=== PATIENT | female | born 1960 | race Two or more races ===

== ENCOUNTER 2019-08-06 12:58 | Emergency (ER) | payer OTHER ==
[2019-08-06] MEDS ORDERED: ASPIRIN 325 MG TABLET PO ONE (13:09)
[2019-08-06] MEDS ORDERED: ONDANSETRON 4 MG/2 ML VIAL IVPUSH ONE (13:26)
[2019-08-06] MEDS ORDERED: SODIUM CHLORIDE 0.9% 500 ML INFUS.BAG IV ONE (13:26)
--- NOTE | 2019-08-06 13:36 | PDOC ---
History of Present Illness <Destiny Diane - Last Filed: 08/06/19 15:06> - General History Source: Patient, Family () Exam Limitations: Language Barrier (creole) - History of Present Illness Initial Comments: 08/06/19 13:30 Shagufta Foreman is a 59yF w PMHx HTN presenting with headache. 1030a at [facility], sudden onset midline frontal headache radiating back to neck, R ear deafness, midsternal chest pain, SOB. Went home, vomited, 1 episode of diarrhea, measured high BP, went to hospital. Denies fever, change of vision, cough, AB pain, urinary changes. Did not take baby aspirin today <Edy Beckman - Last Filed: 08/06/19 15:31> - General Chief Complaint: Chest Pain Stated Complaint: CHEST PAIN/SWEATS Time Seen by Provider: 08/06/19 13:25 Past History <Destiny Diane - Last Filed: 08/06/19 15:06> - Past Medical History COPD: No HTN: Yes - Immunization History Immunization Up to Date: Yes (unknown) - Suicide/Smoking/Psychosocial Hx Smoking Status: No Smoking History: Never smoked Have you smoked in the past 12 months: No Number of Cigarettes Smoked Daily: 0 Information on smoking cessation initiated: No Hx Alcohol Use: No Drug/Substance Use Hx: No Substance Use Type: None <Edy Beckman - Last Filed: 08/06/19 15:31> - Past Medical History Allergies/Adverse Reactions: Allergies Allergy/AdvReac Type Severity Reaction Status Date / Time No Known Allergies Allergy Verified 08/06/19 13:18 Home Medications: Ambulatory Orders Amlodipine Besylate [Norvasc -] 5 mg PO DAILY #30 tablet 01/06/18 Aspirin [ASA -] 81 mg PO DAILY #30 tab.chew 01/06/18 Review of Systems - Review of Systems Constitutional: No: Chills, Fever HEENTM: No: Eye Pain, Recent change in vision, Nose Pain, Throat Pain, Mouth Pain Respiratory: Yes: Shortness of Breath. No: Cough Cardiac (ROS): Yes: Chest Pain. No: Edema, Palpitations, Syncope ABD/GI: Yes: Diarrhea, Nausea, Vomiting. No: Abdominal Distended, Constipated : No: Burning, Dysuria, Discharge, Flank Pain, Hematuria, Incontinence Musculoskeletal: No: Back Pain, Joint Pain, Muscle Pain, Muscle Weakness Integumentary: No: Bruising, Flushing, Lesions Neurological: Yes: Headache. No: Numbness, Seizure, Tingling, Tremors Psychiatric: No: Anxiety, Depression, Stressors Endocrine: No: Excessive Sweating, Flushing, Intolerance to Cold, Intolerance to Heat Hematologic/Lymphatic: No: Anemia, Blood Clots, Easy Bleeding <Edy Beckman - Last Filed: 08/06/19 15:31> *Physical Exam - Vital Signs Last Vital Signs Temp Pulse Resp BP Pulse Ox 98.0 F 85 16 154/95 100 08/06/19 13:00 08/06/19 13:00 08/06/19 13:00 08/06/19 13:00 08/06/19 13:00 <Destiny Diane - Last Filed: 08/06/19 15:06> - Vital Signs Last Vital Signs Temp Pulse Resp BP Pulse Ox 98.0 F 85 16 154/95 100 08/06/19 13:00 08/06/19 13:00 08/06/19 13:00 08/06/19 13:00 08/06/19 13:00 - Physical Exam General Appearance: Yes: Nourished, Appropriately Dressed, Moderate Distress HEENT: positive: EOMI, LAM, Normal Voice, Hearing Grossly Normal. negative: Scleral Icterus (R), Scleral Icterus (L), Nasal Congestion, Rhinorrhea Neck: positive: Supple. negative: Tender, Rigid Respiratory/Chest: positive: Lungs Clear, Normal Breath Sounds. negative: Chest Tender, Respiratory Distress, Crackles, Rales, Rhonchi, Stridor, Wheezing Cardiovascular: positive: Regular Rhythm, Regular Rate, S1, S2. negative: Edema , Murmur Gastrointestinal/Abdominal: positive: Normal Bowel Sounds, Flat, Soft. negative : Tender, Organomegaly Musculoskeletal: positive: Normal Inspection. negative: CVA Tenderness Extremity: positive: Normal Capillary Refill Integumentary: positive: Normal Color Neurologic: positive: [employer] II-XII NML intact, Fully Oriented, Alert, Normal Response, Motor Strength 5/5, Responsive. negative: Facial Droop, Numbness, Sensory Deficit, Confused, Disoriented <Edy Beckman - Last Filed: 08/06/19 15:31> ED Treatment Course - LABORATORY CBC & Chemistry Diagram: 08/06/19 13:45 08/06/19 13:45 - ADDITIONAL ORDERS Additional order review: Laboratory Results 08/06/19 08/06/19 08/06/19 14:15 13:45 13:45 PT with INR 12.20 INR 1.03 Sodium 141 Potassium 3.8 Chloride 106 Carbon Dioxide 29 Anion Gap 6 L BUN 13.7 Creatinine 0.8 Est GFR (CKD-EPI)AfAm 94.85 Est GFR (CKD-EPI)NonAf 81.84 Random Glucose 121 H Calcium 9.3 Total Bilirubin 0.6 AST 18 ALT 26 Alkaline Phosphatase 84 Creatine Kinase Creatine Kinase Index CK-MB (CK-2) Troponin I Total Protein 7.7 Albumin 4.0 Urine Color Yellow Urine Appearance Cloudy Urine pH 8.5 H D Ur Specific [place] 1.011 Urine Protein Negative Urine Glucose (UA) Negative Urine Ketones Negative Urine Blood Negative Urine Nitrite Negative Urine Bilirubin Negative Urine Urobilinogen 0.2 Ur Leukocyte Esterase Negative 08/06/19 13:45 PT with INR INR Sodium Potassium Chloride Carbon Dioxide Anion Gap BUN Creatinine Est GFR (CKD-EPI)AfAm Est GFR (CKD-EPI)NonAf Random Glucose Calcium Total Bilirubin AST ALT Alkaline Phosphatase Creatine Kinase 616 H Creatine Kinase Index 0.3 CK-MB (CK-2) 1.9 Troponin I < 0.02 Total Protein Albumin Urine Color Urine Appearance Urine pH Ur Specific [place] Urine Protein Urine Glucose (UA) Urine Ketones Urine Blood Urine Nitrite Urine Bilirubin Urine Urobilinogen Ur Leukocyte Esterase 08/06/19 13:45 RBC 4.69 MCV 88.0 MCHC 31.7 L RDW 13.7 MPV 10.7 Neutrophils % 66.6 D Lymphocytes % 27.4 D Monocytes % 5.0 Eosinophils % 0.7 Basophils % 0.3 - RADIOLOGY Radiology Studies Ordered: Category Date Time Status CXRPORT [CHEST X-RAY PORTABLE*] [RAD] Stat Radiology 08/06/19 13:08 Ordered - Medications Given in the ED: ED Medications Discontinued Medications Generic Name Dose Route Start Last Admin Trade Name Freq PRN Reason Stop Dose Admin Acetaminophen 1,000 mg 08/06/19 14:09 08/06/19 14:20 Ofirmev Injection - IVPB 08/06/19 14:10 1,000 mg ONCE ONE Administration Aspirin 325 mg 08/06/19 13:09 08/06/19 14:20 Asa - PO 08/06/19 13:10 Not Given ONCE ONE Metoclopramide HCl 10 mg 08/06/19 14:09 08/06/19 14:20 Reglan Injection - IVPB 08/06/19 14:10 10 mg ONCE ONE Administration Ondansetron HCl 4 mg 08/06/19 13:26 08/06/19 13:45 Zofran Injection IVPUSH 08/06/19 13:27 4 mg NOW ONE Administration Sodium Chloride 1,000 ml 08/06/19 13:26 08/06/19 13:45 Normal Saline - IV 08/06/19 13:27 1,000 ml ONCE ONE Administration <Destiny Diane - Last Filed: 08/06/19 15:06> - LABORATORY CBC & Chemistry Diagram: 08/06/19 13:45 08/06/19 13:45 <Edy Beckman - Last Filed: 08/06/19 15:31> Medical Decision Making - Medical Decision Making 08/06/19 13:33 616 CK CBC CMP coags UA normal, trop neg EKG NSR, no ST changes. head CT shows minimal blood along posterior margin of medulla oblongata concerning for subarachinoid hemorrhage, no intraparenchymal hemorrhage 1L NS tylenol reglan for headache Shagufta Foreman is a 59yF w PMHx HTN presenting with headache. CT shows minimal blood along posterior margin of medulla oblongata concerning for subarachinoid hemorrhage, no intraparenchymal hemorrhage. Presenting BP 154/95. ACS ruled out w NSR EKG and neg trop. Not on anticoagulation, did not take baby aspirin today. Given 1L NS tylenol reglan for headache [facility]. Talked to Dr Rachel parekh told to start cardene drip for goal SBP < 140. Accepting Dr Nguyen <Edy Beckman - Last Filed: 08/06/19 15:31> *DC/Admit/Observation/Transfer <Destiny Diane - Last Filed: 08/06/19 15:06> <Edy Beckman - Last Filed: 08/06/19 15:31> Diagnosis at time of Disposition: Subarachnoid hemorrhage - Discharge Dispostion Disposition: TRANSFER ACUTE CARE/OTHER HOSP - Referrals Referrals: Darion Reynolds MD [Primary Care Provider] -
[2019-08-06] MEDS ORDERED: ONDANSETRON 4 MG/2 ML VIAL ONE (13:40)
[2019-08-06 13:44] VITALS: TEMP 98; BMI 35.5
[2019-08-06 13:58] LABS: BASO % 0.3 % (0-2.0); EOS % 0.7 % (0-4.5); HEMATOCRIT 41.2 % (32.4-45.2); HEMOGLOBIN 13.1 GM/dL (10.7-15.3); LYMPH % 27.4 % (8-40); MCH 27.9 pg (25.7-33.7); MCHC 31.7 g/dl (32.0-36.0); MEAN PLT VOLUME 10.7 fl (7.5-11.1); NEUT % 66.6 % (42.8-82.8); PLATELET COUNT 255 K/MM3 (134-434); RBC 4.69 M/mm3 (3.60-5.2); RDW 13.7 % (11.6-15.6); WHITE BLOOD COUNT 9.7 K/mm3 (4.0-10.0)
[2019-08-06 14:06] LABS: INR 1.03 (0.83-1.09); PROTHROMBIN TIME (PATIENT) 12.2 SEC (9.7-13.0)
[2019-08-06] MEDS ORDERED: ACETAMINOPHEN 1000 MG/100 ML VIAL (NON FORMULARY) IVPB ONE (14:09)
[2019-08-06] MEDS ORDERED: METOCLOPRAMIDE HCL INJECTION 10 MG/2 ML VIAL IVPB ONE (14:09)
[2019-08-06] MEDS ORDERED: METOCLOPRAMIDE HCL INJECTION 10 MG/2 ML VIAL ONE (14:10)
[2019-08-06] MEDS ORDERED: ACETAMINOPHEN INJECTION 100 ML IVPB ONE (14:10)
[2019-08-06 14:23] LABS: PH,URINE 8.5 (5.0-8.0); URINE APPEARANCE CLOUDY; URINE BILIRUBIN NEGATIVE (NEGATIVE); URINE COLOR YELLOW; URINE GLUCOSE (UA) NEGATIVE (NEGATIVE); URINE KETONE NEGATIVE (NEGATIVE); URINE LEUK ESTERASE NEGATIVE (NEGATIVE); URINE NITRITE NEGATIVE (NEGATIVE); URINE PROTEIN NEGATIVE (NEGATIVE); URINE UROBILINOGEN 0.2 mg/dL (0.2-1.0)
[2019-08-06 14:24] LABS: BILIRUBIN,TOTAL 0.6 mg/dL (0.2-1); BLOOD UREA NITROGEN 13.7 mg/dL (7-18); CALCIUM 9.3 mg/dL (8.5-10.1); CREATININE 0.8 mg/dL (0.55-1.3); POTASSIUM 3.8 mmol/L (3.5-5.1); TOT PROT 7.7 g/dl (6.4-8.2)
--- NOTE | 2019-08-06 15:10 | PDOC ---
Attending Attestation - Resident Resident Name: Edy Beckman - ED Attending Attestation I have performed the following: I have examined & evaluated the patient, The case was reviewed & discussed with the resident, I agree w/resident's findings & plan, Exceptions are as noted - HPI HPI: 08/06/19 15:07 59 yo F with h/o htn here from [facility] c/o sudden onset headache. pt describes headache posterior head, behind her ear. felt like she couldn't hear out of her ear. came on all of sudden. denies weakness or changes to vision or speech. did feel lightheaded and nauseas. no vomiting. no mod factors. did also have feeling of chest pain, or feeling like she was hungry in left substernal area. epigastric area. no sob. - Physicial Exam PE: 08/06/19 15:09 awake alert lungs clear bilat heart rrr nomrg abd soft nt nd ext wwp. nuero 55 all four ext. CN ii - XiI intact. visual thurman intact. oriented x 3. 5/5 strength all four ext. - Medical Decision Making 08/06/19 15:11 59 yo F with h/o htn here with c/o sudden onset headache, hearing changes, and lightheaded, nasuea and associated chest pain. normal nuerological exam. differential sah, angina, acs. plan cxr ct head labs ekg . asa held pending ct r/o SAH. ct head evaluated concerns for SAH posteriorly. [facility]. awaiting call back. d/w rafat, accepted transfer to [facility]. accepted by dr calzada started on cardene drip. pt baby aspirin daily, did not take today. Heart Score/ECG Review #1 General ECG Interpretation: Sinus Rhythm, Normal Rate (84), Normal Intervals, No acute ischemic changes Compared to previous ECG there are: Other (TWI III only) NIH Stroke Scale - Initial Evaluation Level of consciousness: Alert Ask patient the month and their age: Answers both correctly Ask patient to open & close eyes; make fist and let go: Obeys both correctly Best gaze (horizontal eye movement): Normal Visual field testing: No visual field loss Facial paresis (Show teeth/raise eyebrows/close eyes tight): Normal symmetrical movement Motor Function: Left Arm: Normal Motor Function: Right Arm: Normal (extends arm 90 (or 45) degrees for 10 seconds without drift Motor Function: Left Leg: Normal (extends leg 30 degrees for 5 seconds without drift) Motor Function: Right Leg: Normal (extends leg 30 degrees for 5 seconds without drift) Limb Ataxia: No ataxia Sensory(Use pinprick test arms,legs,trunk,face/side to side): Normal Best language (Describe picture, name items, read sentences): No Aphasia Dysarthria (read several words): Normal articulation Extinction and Inattention: No abnormality - Total Score NIH Stroke Scale Score: 0
[2019-08-06] MEDS ORDERED: NICARDIPINE 25 MG in DEXTROSE 5%-WATER - 240 ML IVPB SCH (15:15)
[2019-08-06 15:42] VITALS: BP 136/95; PULSE 100
--- NOTE | 2019-08-08 07:14 | EKG ---
Test Reason : Blood Pressure : / mmHG Vent. Rate : 084 BPM Atrial Rate : 084 BPM P-R Int : 168 ms QRS Dur : 086 ms QT Int : 322 ms P-R-T Axes : 057 052 015 degrees QTc Int : 380 ms NORMAL SINUS RHYTHM POSSIBLE LEFT ATRIAL ENLARGEMENT NONSPECIFIC ST AND T WAVE ABNORMALITY ABNORMAL ECG WHEN COMPARED WITH ECG OF 05-JAN-2018 06:06, NO SIGNIFICANT CHANGE WAS FOUND Confirmed by ANGELINA OCONNOR, KATTY ([id number]) on 08/08/2019 7:14:15 AM Referred By: Confirmed By:KATTY ALFARO MD
== END 2019-08-06 16:03 | disposition short-term general hospital (02) ==
LOC: JER 12:58
PROC: 3E033GC Introduction of Other Therapeutic Substance into Peripheral Vein, Percutaneous Approach (ICD-10-PCS; principal; 2019-08-06)
PROC: 3E033GC Introduction of Other Therapeutic Substance into Peripheral Vein, Percutaneous Approach (ICD-10-PCS; 2019-08-06)
PROC: 3E033GC Introduction of Other Therapeutic Substance into Peripheral Vein, Percutaneous Approach (ICD-10-PCS; 2019-08-06)
PROC: 3E033NZ Introduction of Analgesics, Hypnotics, Sedatives into Peripheral Vein, Percutaneous Approach (ICD-10-PCS; 2019-08-06)
DX: I60.9 Nontraumatic subarachnoid hemorrhage, unspecified (principal); I60.8 Other nontraumatic subarachnoid hemorrhage; I10 Essential (primary) hypertension
CPT/HCPCS: 36415; 70450-TC; 71045-TC-FY; 80053; 81003; 82550; 82553; 84484; 85025; 85610; 93005; 93010; 99285-25; J0131

== ENCOUNTER 2019-09-17 16:10 | Emergency (ER) | payer OTHER ==
[2019-09-17 16:23] VITALS: BMI 35.5
--- NOTE | 2019-09-17 17:21 | PDOC ---
History of Present Illness - General Chief Complaint: Headache Stated Complaint: TOOTHACHE Time Seen by Provider: 09/17/19 16:27 History Source: Patient Exam Limitations: No Limitations - History of Present Illness Initial Comments: 09/17/19 17:54 HISTORY OF PRESENT ILLNESS: Is a 59-year-old woman with history of hypertension , subarachnoid hemorrhage status post clipping 08/04 who presents to the emergency department for evaluation of toothache worsened over the past 7 days. Patient reports she went to her usual dentist who no longer takes her insurance and is now been having difficulty finding a dentist to do the tooth work. Patient was seen and evaluated by her neurosurgeon on 09/15 and was cleared neurologically from this pain was told to follow-up with a dentist for possible tooth extraction. Patient has been taking Tylenol with codeine to help with the pain but has had minimal effect on her toothache. No recent travel or sick contacts. PAST MEDICAL HISTORY: See HPI SURGICAL HISTORY: Denies ALLERGIES: No known drug allergies REVIEW OF SYSTEMS General/Constitutional: Denies fever or chills. Denies weakness, weight change. HEENT: See HPI Cardiovascular: Denies chest pain or shortness of breath. Respiratory: Denies cough, wheezing, or hemoptysis. Gastrointestinal: Denies nausea, vomiting, diarrhea or constipation. Denies rectal bleeding. Genitourinary: Denies dysuria, frequency, or change in urination. Musculoskeletal: Denies joint or muscle swelling or pain. Denies neck or back pain. Skin and breasts: Denies rash or easy bruising. Neurologic: Denies headache, vertigo, loss of consciousness, or loss of sensation. Psychiatric: Denies depression or anxiety. Endocrine: Denies increased thirst. Denies abnormal weight change. Hematologic/Lymphatic: Denies anemia, easy bleeding, or history of blood clots. Allergic/Immunologic: Denies hives or skin allergy. Denies latex allergy. PHYSICAL EXAM General Appearance: Well-appearing, appropriately dressed. No apparent distress , no intoxication. HEENT: EOMI, PERRLA, normal ENT inspection, normal voice, TMs normal, pharynx normal. No conjunctival pallor. No photophobia, scleral icterus. Poor dentition present. Large dental carry present to tooth #12. Gingiva tender to palpation at the base of tooth 12. No palpable abscess or discharge present. Slight left maxillary swelling present. Neck: Supple. Trachea midline. No tenderness, rigidity, carotid bruit, stridor , lymphadenopathy, or thyromegaly. Respiratory/Chest: Lungs CTAB. No shortness of breath, chest tenderness, respiratory distress, accessory muscle use. No crackles, rales, rhonchi, stridor , wheezing, dullness Cardiovascular: RRR. S1, S2. No JVD, murmur, bradycardia, tachycardia. Integumentary: Appropriate color, dry, warm. No cyanosis, erythema, jaundice or rash Neurologic: perl developer II-XII intact. Fully oriented, alert. Appropriate mood/affect. Motor strength 5/5. No appreciable EOM palsy, facial droop or sensory deficit. Is this a multiple visit Asthma Patient?: No Past History - Past Medical History Allergies/Adverse Reactions: Allergies Allergy/AdvReac Type Severity Reaction Status Date / Time No Known Allergies Allergy Verified 09/17/19 16:13 Home Medications: Ambulatory Orders Amlodipine Besylate [Norvasc -] 5 mg PO DAILY #30 tablet 01/06/18 Aspirin [ASA -] 81 mg PO DAILY #30 tab.chew 01/06/18 Penicillin V Potassium [Pen Vee K -] 500 mg PO QID #28 tablet 09/17/19 COPD: No HTN: Yes - Immunization History Immunization Up to Date: Yes (unknown) - Psycho Social/Smoking Cessation Hx Smoking Status: No Smoking History: Never smoked Have you smoked in the past 12 months: No Number of Cigarettes Smoked Daily: 0 Hx Alcohol Use: No Drug/Substance Use Hx: No Substance Use Type: None *Physical Exam - Vital Signs Last Vital Signs Temp Pulse Resp BP Pulse Ox 98.8 F 110 H 18 148/93 99 09/17/19 16:13 09/17/19 16:13 09/17/19 16:13 09/17/19 16:13 09/17/19 16:13 Medical Decision Making - Medical Decision Making 09/17/19 17:57 A/P: 59-year-old woman with large dental carry of tooth #12 No palpable abscess present Neurologic exam is within normal limits Superior alveolar block performed using bupivacaine and lidocaine mixture at a one-to-one ratio. Patient discharged home with prescription for Pen-Vee K and phone number for [facility] for continued evaluation and further dental treatment. Discharge - Discharge Information Problems reviewed: Yes Clinical Impression/Diagnosis: Dental caries Condition: Stable Disposition: HOME - Admission No - Additional Discharge Information Prescriptions: Penicillin V Potassium [Pen Vee K -] 500 mg PO QID #28 tablet - Follow up/Referral Referrals: Darion Reynolds MD [Primary Care Provider] - - Patient Discharge Instructions Additional Instructions: Rest, drink lots of fluids: Teas, water, soups Saltwater gargles/ keep mouth clean and rinse after each meal May use wet teabag for pain relief to area Avoid hard chewing foods, stick to ice cream, Jell-O, yogurt etc. Tylenol or Motrin for fever and pain Complete all medication as prescribed Call [facility] at [phone] Followup with private physician in one to 2 days as needed Return to emergency department for worsened symptoms, fevers, swelling to face or worsened pain - Post Discharge Activity
[2019-09-17 17:38] VITALS: BP 139/86; PULSE 98; TEMP 98.4
== END 2019-09-17 17:38 | disposition home or self-care (01) ==
LOC: JER 16:10
PROC: 3E0T3BZ Introduction of Anesthetic Agent into Peripheral Nerves and Plexi, Percutaneous Approach (ICD-10-PCS; principal; 2019-09-17)
DX: K08.89 Other specified disorders of teeth and supporting structures (principal); I10 Essential (primary) hypertension; Z79.82 Long term (current) use of aspirin
CPT/HCPCS: 99281-25